=== PATIENT | female | born 1975 | race Two or more races ===

== ENCOUNTER → 2018-09-03 | Outpatient (REF) | payer BC | LOC: M LAB LCGH 13:46 | PROVIDERS: ATTEND Physician Assistant | DX: B35.1 Tinea unguium (principal) ==

== ENCOUNTER → 2019-02-28 | Outpatient (CLI) | payer BC, OTHER ==
--- NOTE | 2019-03-05 16:20 | SLEEPHOME ---
DATE OF PROCEDURE: 02/28/2019 ORDERED BY: Paulette Neil INDICATIONS: Diagnostic home sleep testing was performed due to concern for the obstructive sleep apnea syndrome in this patient with a history of snoring, morning headaches and nonrestorative sleep. For testing a nocturnal T3 respiratory monitoring device was used. Continuous record was made of pulse oxygen saturation airflow, chest, abdominal strain and body position. 9 hours and 59 minutes of data were reviewed. There were 7 hours and 10 minutes marked as time in bed. During the interval marked time in bed there were 174 respiratory events identified of 10 seconds in duration or greater for respiratory event index of 24.3. The events were obstructive in nature. Baseline pulse rate 86, pulse rate ranged 53-117. Baseline saturation 94%. Saturations fell to 79%. Testing was performed in both supine and nonsupine positions. IMPRESSION: Abnormal home sleep testing with repetitive respiratory events and oxygen desaturations to 79% with a respiratory event index of 24.3 is consistent with the obstructive sleep apnea syndrome. RECOMMENDATIONS: The patient should be encouraged to undergo formal sleep evaluation.
== END ==
LOC: M SLEEP HO 11:37
PROVIDERS: ATTEND Nurse Practitioner Adult Health
DX: G47.30 Sleep apnea, unspecified (principal)